=== PATIENT | male | born 1995 ===

== ENCOUNTER 2022-07-06 05:10 | Day surgery (SDC) | payer OTHER ==
[2022-07-06] MEDS ORDERED: PEPCID AC20 MG PO (08:37)
== END 2022-07-06 10:40 | disposition home or self-care (01) ==
LOC: AMB-ENDOS 05:10
PROVIDERS: ATTEND Surgery
DX: K29.00 Acute gastritis without bleeding (principal); Z20.822 Contact with and (suspected) exposure to COVID-19; K44.9 Diaphragmatic hernia without obstruction or gangrene; K31.7 Polyp of stomach and duodenum